=== PATIENT | male | born 1995 | race Caucasian/White ===

== ENCOUNTER 2017-01-19 18:02 | Emergency (ER) | payer SELFPAY ==
--- NOTE | ~2017-01-19 | CR72 ---
[facility]. [facility] A Service of [facility] RADIOLOGY TEXT RESULTS PATIENT: KAYLA CARBALLO LOCATION: SED : [birth year] UNIT #: [id number] AGE: [address]: Mitchel Jacobson MD SEX: M ORDER DR: [id number] [place] [id number] E MR#: [id number] Acc #: [id number] NAME: KAYLA CARBALLO. : 1995 SEX: M STUDY DATE/TIME: 01/19/2017 18:17 UNIT: SED ROOM: STUDY DESCRIPTION: CR Chest Single View Portable Attending Physician: Mitchel Jacobson M.D. Ordering Physician: Mitchel Jacobson M.D. Primary Care Physician: Primary Care Physician No MEDICAL IMAGING REPORT This report is preliminary unless electronic signature is present. EXAM Portable chest, 01/19/2017 HISTORY 21-year-old male with shortness of air for 4-5 days. COMPARISON Chest 03/22/2013. FINDINGS Frontal chest demonstrates clear lungs. No pleural effusion or pneumothorax. Heart size and mediastinum are normal. Pulmonary vasculature normal. IMPRESSION No acute cardiopulmonary findings. Dictated by... Alan Miguel M.D. THIS IS AN ELECTRONICALLY VERIFIED REPORT Alan Miguel M.D. at 01/20/2017 6:12 PM JENNIFER/carrillo TD: 01/19/2017 21:43 JOB #: [id number] MEDICAL IMAGING REPORT Page 1 of 1
[~2017-01-19 18:02] MED LIST: ADVIL200 M1 PO; CLEOCIN HCL300 M1 PO; DICYCLOMINE HCL20 MG PO; IBUPROFEN600 MG PO; NO MEDICATIONS; PHENERGAN SUPP25 MG PR; PHENERGAN12.5 M1 PO; PREDNISONE PO; TYLENOL #3 PO; ZOFRAN ODT4 MG PO; ZYRTEC10 M2 PO
[2017-01-19] MEDS ORDERED: ALBUTEROL17 GM (18:13)
[2017-01-19] MEDS ORDERED: ANTIBIOTIC PO (18:13)
== END 2017-01-19 20:15 | disposition home or self-care (01) ==
LOC: SED 18:02
DX: J45.901 Unspecified asthma with (acute) exacerbation (principal); F17.200 Nicotine dependence, unspecified, uncomplicated; Z79.899 Other long term (current) drug therapy
CPT/HCPCS: 71010; 94640; 99284